=== PATIENT | female | born 1990 | race Two or more races ===

== ENCOUNTER 2017-01-14 14:53 | Emergency (ER) | payer OTHER ==
[~2017-01-14] VITALS: Ht 157.5 cm; Wt 72.6 kg
[2017-01-14] MEDS ORDERED: HYDROcodone-ACET 10/325MG TAB PO ONE (17:45)
[2017-01-14 18:02] LABS: Urine Bilirubin Negative (Negative); Urine Blood Negative /uL (Negative); Urine Color Yellow (Yellow); Urine Glucose Normal (Normal); Urine Ketone Negative (Negative); Urine Mucus FEW (None Seen); Urine Nitrite Negative (Negative); Urine RBC 2 /hpf (0 - 4); Urine Squamous Epithelial Cell FEW /hpf (<5); Urine Urobilinogen Normal (Negative)
[2017-01-14 18:14] VITALS: BP 120/82
== END 2017-01-14 18:13 | disposition home or self-care (01) ==
LOC: ER 15:02
DX: R10.32 Left lower quadrant pain (principal)
CPT/HCPCS: 74176; 81001; 81002

== ENCOUNTER 2019-12-23 19:29 | Emergency (ER) | payer OTHER ==
[~2019-12-23] VITALS: Ht 157.5 cm; Wt 83.9 kg
[2019-12-23 19:59] VITALS: BP 132/92
[2019-12-23 22:18] LABS: Urine Bacteria FEW /hpf (None Seen); Urine Blood 1+ /uL (Negative); Urine Mucus FEW (None Seen); Urine WBC 142 /hpf (0 - 5)
== END 2019-12-23 22:28 | disposition home or self-care (01) ==
LOC: ER 19:32
DX: N39.0 Urinary tract infection, site not specified (principal)
CPT/HCPCS: 81001; 81025

== ENCOUNTER 2022-03-17 17:29 | Inpatient (IN) | payer MEDICAID, OTHER ==
[~2022-03-17] VITALS: Ht 160 cm; Wt 61.2 kg
[2022-03-17 18:14] LABS: Basophils # (auto) 0.1 10 ^3/uL (0-0.2); Basophils % (auto) 0.4 % (0.0-2.0); Eosinophils # (auto) 0 10 ^3/uL (0-0.8); Hematocrit 50.2 % (36.0-46.0); Lymphocytes # (auto) 0.9 10 ^3/uL (0.4-5.4); Lymphocytes % (auto) 3.2 % (10.0-50.0); Mean Corpuscular Hemoglobin 28.6 pg (28.0-32.0); Mean Corpuscular Hgb Conc. 31.8 g/dL (32.0-36.0); Mean Corpuscular Volume 89.7 fL (80.0-100.0); Monocytes # (auto) 1.9 10 ^3/uL (0-1.3); Monocytes % (auto) 6.4 % (0.0-12.0); Neutrophils # (auto) 26.4 10 ^3/uL (1.6-8.6); Nucleated Red Blood Cells % 0.1 %; Red Cell Distribution Width 13.6 % (11.8-14.3); White Blood Cell 29.4 10^3/uL (4.4-10.8)
[2022-03-17] MEDS ORDERED: SODIUM CHLORIDE 0.9% 1,000 ML IV ONE ×2 (18:15)
[2022-03-17 18:44] LABS: Albumin 2.8 g/dL (3.4-5.0); Calcium 8.8 mg/dL (8.5-10.1); Lactic Acid w/Reflex 2.4 mmol/L (0.4-2.0); Potassium 3.8 mmol/L (3.5-5.1)
[2022-03-17 18:49] LABS: Bilirubin, Total 0.5 mg/dL (0.2-1.0); Total Protein 7.2 g/dL (6.4-8.2)
[2022-03-17 19:06] LABS: Urine Bacteria FEW /hpf (None Seen); Urine Blood 2+ /uL (Negative); Urine Mucus FEW (None Seen); Urine Specific Gravity 1.019 (1.001-1.035); Urine WBC 1 /hpf (0 - 5)
[2022-03-17 19:08] LABS: BUN/Creatinine Ratio 31.3
[2022-03-17] MEDS ORDERED: cefTRIAXone 1GM/50ML D5W 50 ML IV ONE (19:15)
[2022-03-17] MEDS ORDERED: VANCOMYCIN 1GM/250ML 250 ML IV ONE (19:15)
[2022-03-17] MEDS ORDERED: ASPirin 81 mg TAB PO ONE (19:15)
[2022-03-17] MEDS ORDERED: IOHEXOL 300 MG/ML 100ML BOTTLE IJ ONE (19:27)
[2022-03-17] MEDS ORDERED: InsuLIN R (HUMAN) 100 UNITS in SODIUM CHL 0.9% 99 ML IV SCH (19:30)
[2022-03-17] MEDS ORDERED: INSULIN LANTUS (GLARGINE) 1 /0.01ml (100units/ml) SC ONE (19:30)
[2022-03-17] MEDS ORDERED: DEXTROSE (50%) 50ML SYRG IV PRN ×2 (19:30→21:00)
[2022-03-17 19:55] LABS: Magnesium 2.5 mg/dL (1.6-2.6)
[2022-03-17] MEDS ORDERED: InsuLIN REG 1unit/0.01ml Soln (100units/ml) ONE (19:57)
[2022-03-17 19:58] LABS: Phosphorus 4.7 mg/dL (2.5-4.90)
[2022-03-17] MEDS: ACCU-CHEK COMFORT CURVE STRIP VI SCH ×4 (20:04→23:53)
[2022-03-17] MEDS ORDERED: ONDANSETRON HCL 4 MG/2 ML VIAL IV PRN (21:00)
[2022-03-17] MEDS ORDERED: MORPHINE SULFATE INJ 2 MG/ml SYRG IV PRN (21:00)
[2022-03-17] MEDS ORDERED: NITROGLYCERIN 0.4 MG SL TAB SL PRN (21:00)
[2022-03-17] MEDS ORDERED: SODIUM BICARBONATE 50ML VIAL 100 ML in SOD CHL 0.45% 1,000 ML IV SCH (21:30)
[2022-03-17] MEDS ORDERED: SODIUM BICARBONATE 8.4 % INJ 50ML VIAL IV ONE ×2 (21:30→21:40)
[2022-03-17] MEDS: D5W/SOD CHL 0.45%/KCL 20MEQ 1,000 ML IV SCH (22:03)
[2022-03-17] MEDS: ATORVASTATIN 20 MG TAB PO SCH (22:14)
[2022-03-17 22:19] LABS: BUN/Creatinine Ratio 29.3; Calcium 8.2 mg/dL (8.5-10.1); Potassium 3.2 mmol/L (3.5-5.1)
[2022-03-17] MEDS ORDERED: SODIUM CHLORIDE 0.9% 1,000 ML IV SCH (23:30)
[2022-03-18] MEDS ORDERED: SODIUM CHLORIDE 0.9% 500 ML IV ONE ×2 (01:15→07:15)
[2022-03-18] MEDS ORDERED: dilTIAZem 25 MG/5 ML VIAL IV ONE ×3 (01:15→23:00)
[2022-03-18] MEDS: ACCU-CHEK COMFORT CURVE STRIP VI SCH ×11 (01:22→21:00)
[2022-03-18] MEDS: SODIUM CHLORIDE 0.9% 1,000 ML IV SCH ×2 (02:34→08:10)
[2022-03-18 02:36] LABS: Hemoglobin 15.3 g/dL (12.2-16.2); Mean Corpuscular Hemoglobin 28.5 pg (28.0-32.0); Mean Corpuscular Hgb Conc. 32.5 g/dL (32.0-36.0); Mean Corpuscular Volume 87.6 fL (80.0-100.0); Red Blood Cells 5.37 10^6/uL (4.0-5.20); Red Cell Distribution Width 12.9 % (11.8-14.3); White Blood Cell 27.3 10^3/uL (4.4-10.8)
[2022-03-18 02:54] LABS: BUN/Creatinine Ratio 28.1; Calcium 8.4 mg/dL (8.5-10.1)
[2022-03-18 03:03] LABS: Basophils % (manual) 0 (0.0-2.0); Blast Cells 0; Eosinophils % (manual) 0 (0-7); Metamyelocytes % 0; Myelocytes % 0; Promyelocytes % 0; Reactive Lymphocytes 0
[2022-03-18 03:12] LABS: Potassium 1.9 mmol/L (3.5-5.1)
[2022-03-18] MEDS: D5W/SOD CHL 0.45%/KCL 20MEQ 1,000 ML IV SCH ×4 (03:56→09:58)
[2022-03-18 05:14] LABS: Band Neutrophils % (manual) 15; Lymphocytes % (manual) 9 (10.0-50.0); Monocytes % (manual) 7 (0-12)
[2022-03-18] MEDS ORDERED: VANCOMYCIN PER PHARMACY 0 MG IV SCH (05:15)
[2022-03-18] MEDS ORDERED: SODIUM BICARBONATE 8.4 % INJ 50ML VIAL IV ONE (05:15)
[2022-03-18] MEDS ORDERED: SODIUM BICARBONATE 50ML VIAL 100 ML in SOD CHL 0.45% 1,000 ML IV SCH (05:15)
[2022-03-18] MEDS: POTASSIUM CHL 20MEQ/100ML 100 ML IV SCH ×4 (05:25→11:05)
[2022-03-18] MEDS ORDERED: InsuLIN R (HUMAN) 100 UNITS in SODIUM CHL 0.9% 99 ML IV SCH ×3 (06:00)
[2022-03-18 06:28] LABS: Anion Gap 18 (5-15); Chloride 112 mmol/L (98-107); Sodium 137 mmol/L (136-145)
[2022-03-18 06:36] LABS: Blood Urea Nitrogen 25 mg/dL (7-18); Calcium 8.2 mg/dL (8.5-10.1); Glucose 318 mg/dL (74-106)
[2022-03-18 06:43] LABS: Carbon Dioxide 7 mmol/L (21-32); Potassium 1.7 mmol/L (3.5-5.1)
[2022-03-18 06:56] LABS: BUN/Creatinine Ratio 26.6; GFR African American 86 mL/min; GFR Non-African American 71 mL/min
[2022-03-18] MEDS ORDERED: SODIUM BICARBONATE 50ML VIAL 150 ML in SOD CHL 0.45% 1,000 ML IV SCH (07:15)
[2022-03-18] MEDS ORDERED: cefTRIAXone 1GM/50ML D5W 50 ML IV SCH (09:00)
[2022-03-18] MEDS ORDERED: D5 IV ONE (09:15)
[2022-03-18] MEDS ORDERED: POTASSIUM EFFERVESENT TAB 25 MEQ PO ONE ×2 (09:15→16:30)
[2022-03-18] MEDS ORDERED: POTASSIUM CHLORIDE IV ONE (09:15)
[2022-03-18] MEDS ORDERED: SOD CHL IV ONE (09:15)
[2022-03-18 09:24] LABS: INR 1.21 (0.9-1.15); Partial Thromboplastin Time 32.9 sec (24.6-33.4)
[2022-03-18] MEDS ORDERED: INSULIN LANTUS (GLARGINE) 1 /0.01ml (100units/ml) SC SCH (10:00)
[2022-03-18] MEDS: ASPirin 81 mg TAB PO SCH (10:40)
[2022-03-18] MEDS: INSULIN LANTUS (GLARGINE) 1 /0.01ml (100units/ml) SC SCH (10:40)
[2022-03-18] MEDS: PANTOPRAZOLE 40 MG/10 ML VIAL INJ IV SCH (10:40)
[2022-03-18] MEDS: SOD CHL 0.9%/ KCL 40MEQ 1,000 ML IV ONE ×2 (12:18→12:33)
[2022-03-18] MEDS: VANCOMYCIN 1GM/250ML 250 ML IV SCH (13:44)
[2022-03-18] MEDS: MEROPENEM 1GM IVPB 100 ML IV SCH ×2 (14:31→23:18)
[2022-03-18 15:48] LABS: BUN/Creatinine Ratio 26.3; Calcium 8.3 mg/dL (8.5-10.1)
[2022-03-18 16:19] LABS: Potassium 2.5 mmol/L (3.5-5.1)
[2022-03-18] MEDS ORDERED: DEXTROSE (50%) 50ML SYRG IV PRN (16:30)
[2022-03-18] MEDS ORDERED: POTASSIUM CHL 20MEQ/100ML 100 ML IV ONE (16:30)
[2022-03-18] MEDS: HYDROcodone-ACET 5/325MG TAB PO PRN (18:24)
[2022-03-18] MEDS: InsuLIN REG 1unit/0.01ml Soln (100units/ml) SC SCH (21:54)
[2022-03-18] MEDS: ATORVASTATIN 20 MG TAB PO SCH (23:16)
[2022-03-18 23:22] LABS: BUN/Creatinine Ratio 27.2; Calcium 8.5 mg/dL (8.5-10.1)
[2022-03-19] VITALS (7 sets, daily range): BP systolic 125–154; BP diastolic 79–98
[2022-03-19] MEDS: ACCU-CHEK COMFORT CURVE STRIP VI SCH ×7 (01:12→23:53)
[2022-03-19] MEDS ORDERED: METOPROLOL TARTRATE 25 MG TAB PO ONE (01:15)
[2022-03-19] MEDS: InsuLIN REG 1unit/0.01ml Soln (100units/ml) SC SCH ×7 (01:22→23:54)
[2022-03-19 05:49] LABS: Calcium 8.6 mg/dL (8.5-10.1); Potassium 3.9 mmol/L (3.5-5.1)
[2022-03-19 05:51] LABS: BUN/Creatinine Ratio 33.3
[2022-03-19] MEDS: MEROPENEM 1GM IVPB 100 ML IV SCH ×3 (06:00→21:54)
[2022-03-19 06:56] LABS: Basophils # (auto) 0 10 ^3/uL (0-0.2); Basophils % (auto) 0.1 % (0.0-2.0); Eosinophils # (auto) 0 10 ^3/uL (0-0.8); Hemoglobin 12.3 g/dL (12.2-16.2); Lymphocytes # (auto) 1.2 10 ^3/uL (0.4-5.4); Mean Corpuscular Hemoglobin 28.2 pg (28.0-32.0); Mean Corpuscular Hgb Conc. 34.1 g/dL (32.0-36.0); Mean Corpuscular Volume 82.8 fL (80.0-100.0); Monocytes # (auto) 1.1 10 ^3/uL (0-1.3); Monocytes % (auto) 8.2 % (0.0-12.0); Neutrophils # (auto) 11.4 10 ^3/uL (1.6-8.6); Neutrophils % (auto) 82.7 % (37.0-80.0); Nucleated Red Blood Cells % 0.1 %; Red Blood Cells 4.35 10^6/uL (4.0-5.20); Red Cell Distribution Width 13.2 % (11.8-14.3); White Blood Cell 13.8 10^3/uL (4.4-10.8)
[2022-03-19] MEDS: VANCOMYCIN 1GM/250ML 250 ML IV SCH (08:07)
[2022-03-19 09:13] LABS: Magnesium 1.9 mg/dL (1.6-2.6); Phosphorus 1.1 mg/dL (2.5-4.90)
[2022-03-19] MEDS: PANTOPRAZOLE 40 MG/10 ML VIAL INJ IV SCH (09:41)
[2022-03-19] MEDS: ASPirin 81 mg TAB PO SCH (09:41)
[2022-03-19] MEDS ORDERED: methIMAzole 5 MG TAB PO ONE ×2 (09:45→16:00)
[2022-03-19] MEDS: SOD CHL 0.45% 1,000 ML IV SCH ×2 (09:46→18:28)
[2022-03-19 10:44] LABS: Free T4 (Free Thyroxine) 2.52 ng/dL (0.89-1.76); T3 Total 0.79 ng/mL (0.60-1.81)
[2022-03-19] MEDS: PROPRANOLOL HCL 20 MG TAB PO SCH ×2 (11:05→21:53)
[2022-03-19] MEDS: INSULIN LANTUS (GLARGINE) 1 /0.01ml (100units/ml) SC SCH (11:06)
[2022-03-19] MEDS: ATORVASTATIN 20 MG TAB PO SCH (21:52)
[2022-03-19] MEDS: methIMAzole 5 MG TAB PO SCH (21:53)
[2022-03-19] MEDS: HYDROcodone-ACET 5/325MG TAB PO PRN (22:36)
[2022-03-20] MEDS: SOD CHL 0.45% 1,000 ML IV SCH ×3 (00:45→17:09)
[2022-03-20] MEDS: VANCOMYCIN 1GM/250ML 250 ML IV SCH ×2 (01:53→12:36)
[2022-03-20] MEDS: InsuLIN REG 1unit/0.01ml Soln (100units/ml) SC SCH ×6 (04:02→23:58)
[2022-03-20] MEDS: ACCU-CHEK COMFORT CURVE STRIP VI SCH ×6 (04:03→23:57)
[2022-03-20 05:00] VITALS: BP 140/95
[2022-03-20] MEDS: MEROPENEM 1GM IVPB 100 ML IV SCH ×3 (05:38→22:21)
[2022-03-20] MEDS: methIMAzole 5 MG TAB PO SCH ×3 (05:38→22:23)
[2022-03-20 06:55] LABS: Basophils # (auto) 0 10 ^3/uL (0-0.2); Basophils % (auto) 0.1 % (0.0-2.0); Eosinophils # (auto) 0.1 10 ^3/uL (0-0.8); Eosinophils % (auto) 0.5 % (0.0-7.0); Hematocrit 37.2 % (36.0-46.0); Hemoglobin 12.4 g/dL (12.2-16.2); Lymphocytes # (auto) 2.5 10 ^3/uL (0.4-5.4); Mean Corpuscular Hemoglobin 27.6 pg (28.0-32.0); Mean Corpuscular Hgb Conc. 33.4 g/dL (32.0-36.0); Mean Corpuscular Volume 82.6 fL (80.0-100.0); Monocytes # (auto) 0.9 10 ^3/uL (0-1.3); Monocytes % (auto) 5.6 % (0.0-12.0); Neutrophils % (auto) 78.8 % (37.0-80.0); Potassium 3.2 mmol/L (3.5-5.1); Red Cell Distribution Width 13.2 % (11.8-14.3); White Blood Cell 16.5 10^3/uL (4.4-10.8)
[2022-03-20 07:08] LABS: Albumin 1.9 g/dL (3.4-5.0); BUN/Creatinine Ratio 36.2; Calcium 8.2 mg/dL (8.5-10.1)
[2022-03-20 07:16] LABS: Bilirubin, Total 1.1 mg/dL (0.2-1.0); Total Protein 5.2 g/dL (6.4-8.2)
[2022-03-20] MEDS: PANTOPRAZOLE 40 MG/10 ML VIAL INJ IV SCH (08:58)
[2022-03-20] MEDS: ASPirin 81 mg TAB PO SCH (08:58)
[2022-03-20] MEDS: PROPRANOLOL HCL 20 MG TAB PO SCH ×2 (08:59→22:25)
[2022-03-20 09:00] VITALS: BP 148/86
[2022-03-20] MEDS: INSULIN LANTUS (GLARGINE) 1 /0.01ml (100units/ml) SC SCH (09:05)
[2022-03-20 12:21] LABS: Magnesium 1.8 mg/dL (1.6-2.6); Phosphorus 1.9 mg/dL (2.5-4.90)
[2022-03-20 13:00] VITALS: BP 133/90
[2022-03-20] MEDS ORDERED: POTASSIUM EFFERVESENT TAB 25 MEQ PO ONE (16:15)
[2022-03-20] MEDS ORDERED: MAGNESIUM SULFATE 1GM/100ML 100 ML IV ONE (16:15)
[2022-03-20 17:00] VITALS: BP 139/87
[2022-03-20 22:00] VITALS: BP 141/87
[2022-03-20] MEDS: ATORVASTATIN 20 MG TAB PO SCH (22:25)
[2022-03-21] MEDS: VANCOMYCIN 1GM/250ML 250 ML IV SCH (01:00)
[2022-03-21] MEDS: SOD CHL 0.45% 1,000 ML IV SCH ×2 (03:44→09:09)
[2022-03-21] MEDS: ACCU-CHEK COMFORT CURVE STRIP VI SCH ×6 (03:45→23:37)
[2022-03-21] MEDS: InsuLIN REG 1unit/0.01ml Soln (100units/ml) SC SCH ×6 (03:45→23:38)
[2022-03-21 05:00] VITALS: BP 143/86
[2022-03-21] MEDS: MEROPENEM 1GM IVPB 100 ML IV SCH ×2 (05:19→14:19)
[2022-03-21] MEDS: methIMAzole 5 MG TAB PO SCH ×3 (05:21→21:55)
[2022-03-21 06:10] LABS: Basophils # (auto) 0 10 ^3/uL (0-0.2); Basophils % (auto) 0.2 % (0.0-2.0); Eosinophils # (auto) 0.1 10 ^3/uL (0-0.8); Eosinophils % (auto) 0.3 % (0.0-7.0); Hematocrit 36.5 % (36.0-46.0); Hemoglobin 12.5 g/dL (12.2-16.2); Lymphocytes # (auto) 2.9 10 ^3/uL (0.4-5.4); Lymphocytes % (auto) 14.8 % (10.0-50.0); Mean Corpuscular Hgb Conc. 34.2 g/dL (32.0-36.0); Mean Corpuscular Volume 81.7 fL (80.0-100.0); Monocytes # (auto) 1.3 10 ^3/uL (0-1.3); Monocytes % (auto) 6.5 % (0.0-12.0); Neutrophils # (auto) 15.4 10 ^3/uL (1.6-8.6); Neutrophils % (auto) 78.2 % (37.0-80.0); Red Blood Cells 4.47 10^6/uL (4.0-5.20); Red Cell Distribution Width 13.2 % (11.8-14.3); White Blood Cell 19.7 10^3/uL (4.4-10.8)
[2022-03-21 06:42] LABS: Potassium 3.2 mmol/L (3.5-5.1)
[2022-03-21 06:46] LABS: BUN/Creatinine Ratio 25.5
[2022-03-21 07:55] VITALS: BP 139/83
[2022-03-21] MEDS: PANTOPRAZOLE 40 MG/10 ML VIAL INJ IV SCH (09:09)
[2022-03-21] MEDS: ASPirin 81 mg TAB PO SCH (09:10)
[2022-03-21] MEDS: POTASSIUM EFFERVESENT TAB 25 MEQ PO SCH (10:14)
[2022-03-21] MEDS: PROPRANOLOL HCL 20 MG TAB PO SCH ×2 (10:15→21:55)
[2022-03-21] MEDS: INSULIN LANTUS (GLARGINE) 1 /0.01ml (100units/ml) SC SCH (10:15)
[2022-03-21] MEDS ORDERED: VANCOMYCIN 1GM/250ML 250 ML IV SCH (11:00)
[2022-03-21 12:30] VITALS: BP 127/79
[2022-03-21 16:25] VITALS: BP 138/85
[2022-03-21 17:36] LABS: Cholesterol 76 mg/dL (< 200); HDL Cholesterol 17 mg/dL (40-59); LDL Cholesterol 32 mg/dL (< 100); Triglycerides 96 mg/dL (< 150)
[2022-03-21] MEDS: ATORVASTATIN 20 MG TAB PO SCH (21:55)
[2022-03-21 22:00] VITALS: BP 133/75
[2022-03-22] MEDS: InsuLIN REG 1unit/0.01ml Soln (100units/ml) SC SCH ×2 (03:54→08:00)
[2022-03-22] MEDS: ACCU-CHEK COMFORT CURVE STRIP VI SCH ×3 (03:54→12:00)
[2022-03-22 05:00] VITALS: BP 136/83
[2022-03-22] MEDS: methIMAzole 5 MG TAB PO SCH ×3 (06:27→21:34)
[2022-03-22 09:00] VITALS: BP 132/77
[2022-03-22] MEDS: POTASSIUM EFFERVESENT TAB 25 MEQ PO SCH (09:54)
[2022-03-22] MEDS: PANTOPRAZOLE 40 MG/10 ML VIAL INJ IV SCH (09:54)
[2022-03-22] MEDS: PROPRANOLOL HCL 20 MG TAB PO SCH ×2 (09:55→21:33)
[2022-03-22] MEDS: ASPirin 81 mg TAB PO SCH (09:55)
[2022-03-22] MEDS: INSULIN LANTUS (GLARGINE) 1 /0.01ml (100units/ml) SC SCH (11:00)
[2022-03-22 13:00] VITALS: BP 120/78
[2022-03-22] MEDS ORDERED: METF-371 PO (15:15)
[2022-03-22] MEDS ORDERED: METH5T PO (15:15)
[2022-03-22] MEDS ORDERED: PROP20TA73 PO (15:15)
[2022-03-22 17:00] VITALS: BP 121/77
[2022-03-22] MEDS: metFORMIN HYDROCHLORIDE 850 MG TAB PO SCH (18:08)
[2022-03-22] MEDS: ATORVASTATIN 20 MG TAB PO SCH (21:32)
[2022-03-22 22:00] VITALS: BP 127/73
[2022-03-23] MEDS: methIMAzole 5 MG TAB PO SCH (06:14)
[2022-03-23 08:00] VITALS: BP 126/80
[2022-03-23] MEDS: metFORMIN HYDROCHLORIDE 850 MG TAB PO SCH (08:23)
[2022-03-23 08:58] VITALS: BP 116/66
[2022-03-23] MEDS ORDERED: Pro-Stat SF 30ml Vanilla PO SCH (10:00)
[2022-03-23] MEDS: ASPirin 81 mg TAB PO SCH (10:37)
[2022-03-23] MEDS: PANTOPRAZOLE 40 MG/10 ML VIAL INJ IV SCH (10:37)
[2022-03-23] MEDS: POTASSIUM EFFERVESENT TAB 25 MEQ PO SCH (10:39)
[2022-03-23] MEDS: PROPRANOLOL HCL 20 MG TAB PO SCH (10:39)
[2022-03-23] MEDS ORDERED: LANC-268 XX (12:56)
[2022-03-23] MEDS ORDERED: [UNRECOGNIZED DRUG - CODE] XX (12:56)
[2022-03-23] MEDS ORDERED: BLOO1KIT59 XX (12:56)
[2022-03-23 13:12] VITALS: BP 118/78
[2022-03-23 13:56] VITALS: BP 126/80
== END 2022-03-23 14:42 | disposition home or self-care (01) | DRG 420 ==
LOC: ER 17:29 → TELE 20:49 → TELE-EAST 03-19 01:58
PROVIDERS: ADMIT Nurse Practitioner; ATTEND Internal Medicine
DX: E11.10 Type 2 diabetes mellitus with ketoacidosis without coma (principal); I21.A1 Myocardial infarction type 2; N15.1 Renal and perinephric abscess; R65.10 Systemic inflammatory response syndrome (SIRS) of non-infectious origin without acute organ dysfunction; S37.012A Minor contusion of left kidney, initial encounter; N39.0 Urinary tract infection, site not specified; E87.6 Hypokalemia; X58.XXXA Exposure to other specified factors, initial encounter; E05.90 Thyrotoxicosis, unspecified without thyrotoxic crisis or storm; Z20.822 Contact with and (suspected) exposure to COVID-19; Z79.4 Long term (current) use of insulin; Z83.3 Family history of diabetes mellitus; Y93.89 Activity, other specified; Y92.89 Other specified places as the place of occurrence of the external cause; Y99.8 Other external cause status; Z91.199 Patient's noncompliance with other medical treatment and regimen due to unspecified reason
CPT/HCPCS: 36415; 36600; 71045; 74178; 76536; 80048; 80053; 80061; 80202; 81001; 81025; 82010; 82805; 82962; 83036; 83605; 83615; 83690; 83735; 83880; 83930; 84100; 84439; 84443; 84480; 84484; 85007; 85025; 85027; 85379; 85610; 85730; 87040; 87426; 93005; 93306; 96365; 96367; 96368; 96372; 96375; 99291; C9113; G0378; J0696; J1815; J2185; J2405; J3480